=== PATIENT | female | born 2000 ===

== ENCOUNTER 2018-02-16 16:36 | Emergency (ER) | payer OTHER ==
[2018-02-16 16:54] VITALS: BP 106/64
[2018-02-16] MEDS ORDERED: Ondansetron ODT TAB* 4 MG PO ONE (19:33)
--- NOTE | 2018-02-17 04:40 | ED ---
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 She was seen at [facility] and diagnosed with concussion. She states that bright lights and loud noises bother her. She denies any more severe symptoms any weakness, numbness. Her symptoms are very mild at present she has no visual changes right now. She has no prior concussions. She states that she was walking on the street and slipped and fell and struck the right side of her head. She had swelling initially but that has gone down now. - History Of Current Complaint Chief Complaint: EDHeadInjury Stated Complaint: HEAD INJURY Time Seen by Provider: 02/16/18 19:01 Hx Obtained From: Patient Pain Intensity: 1 Pain Scale Used: 0-10 Numeric - Allergies/Home Medications Allergies/Adverse Reactions: Allergies Allergy/AdvReac Type Severity Reaction Status Date / Time No Known Allergies Allergy Verified 02/16/18 16:54 PMH/Surg Hx/FS Hx/Imm Hx Previously Healthy: Yes Infectious Disease History: No Infectious Disease History: Denies: Traveled Outside the [place] in Last 30 Days - Social History Alcohol Use: None Substance Use Type: Reports: None Smoking Status (MU): Never Smoked Tobacco Review of Systems Positive: Fatigue. Negative: Fever Positive: Other - sensitivity to light mild Negative: Epistaxis, Dental Pain Positive: Nausea. Negative: Vomiting Musculoskeletal: Negative Positive: Headache. Negative: Weakness, Paresthesia, Numbness, Syncope, Slurred Speech All Other Systems Reviewed And Are Negative: Yes Physical Exam Triage Information Reviewed: Yes Vital Signs On Initial Exam: Initial Vitals Temp Pulse Resp BP Pulse Ox 98.2 F 68 16 106/64 99 02/16/18 16:50 02/16/18 16:50 02/16/18 16:50 02/16/18 16:50 02/16/18 16:50 Vital Signs Reviewed: Yes Appearance: Positive: Well-Appearing, No Pain Distress, Well-Nourished Skin: Positive: Warm, Skin Color Reflects Adequate Perfusion Head/Face: Positive: Normal Head/Face Inspection. Negative: Scalp, Cephalohematoma Eyes: Positive: EOMI, PATRICK ENT: Positive: Normal ENT inspection, Pharynx normal, TMs normal Neck: Positive: Supple, Nontender Respiratory/Lung Sounds: Positive: Clear to Auscultation Cardiovascular: Positive: RRR Musculoskeletal: Positive: Normal, Strength/ROM Intact Neurological: Positive: Normal, Sensory/Motor Intact, Alert, Oriented to Person Place, Time, CN Intact II-III, Reflexes Intact, Normal Gait Psychiatric: Positive: Normal, Affect/Mood Appropriate AVPU Assessment: Alert Diagnostics - Vital Signs Vital Signs Temp Pulse Resp BP Pulse Ox 02/16/18 16:50 98.2 F 68 16 106/64 99 - Laboratory Lab Statement: Any lab studies that have been ordered have been reviewed, and results considered in the medical decision making process. Head Injury Course/Dx Course Of Treatment: Patient with minor head injury and no outward sign of head injury at present. Now with symptoms concerning for postconcussive syndrome. No indication for imaging at this point. Symptoms are mild. She arty had Zofran prescribe a had not been using it. She has schedule follow-up in the morning at [facility]. Off school until Wednesday. No contact sports. Patient is not enough sleep. - Diagnoses Differential Diagnosis/HQI/PQRI: Concussion Without LOC, Intracranial Bleed Provider Diagnoses: Postconcussion syndrome Discharge - Sign-Out/Discharge Documenting (check all that apply): Patient Departure - Discharge Plan Condition: Improved Disposition: HOME Prescriptions: Ondansetron ODT TAB* [Zofran 4 MG Odt TAB*] 4 mg PO Q6H PRN #12 tab.odt PRN Reason: nausea/headache Patient Education Materials: Post Concussion Syndrome (ED) Referrals: [facility] [Provider Group] Additional Instructions: Follow up with [facility] tomorrow as scheduled. Out of class until Wednesday. Return with vomiting, increased headache, worse or other concerns as discussed. - Billing Disposition and Condition Condition: IMPROVED Disposition: Home - Attestation Statements Document Initiated by Garry: Abby
== END 2018-02-16 20:09 | disposition home or self-care (01) ==
LOC: ED 16:36
DX: F07.81 Postconcussional syndrome (principal); Z91.81 History of falling
CPT/HCPCS: 99282